=== PATIENT | female | born 1950 | race Caucasian/White ===

== ENCOUNTER 2019-03-30 13:42 | Inpatient (IN) ==
[2019-03-30] MEDS ORDERED: Ipratropium/Albuterol Neb 3 ML IH ONE ×2 (14:04→14:09)
[2019-03-30] MEDS ORDERED: Piperacillin/Tazobactam 4.5 GM in 0.9 % Sodium Chloride Mini Bag 100 ML IVPB ONE (14:21)
[2019-03-30 14:25] LABS: Basophils # 0.1 K/mcL (0.0-0.2); Basophils % 0.7 %; Eosinophils # 2.7 K/mcL (0.0-0.6); Eosinophils % 35.7 %; Hematocrit 37.1 % (35.3-44.9); Hemoglobin 11.6 g/dL (11.5-15.4); Immature Granulocytes % 0.1 % (0-4); Lymphocytes % 12.8 %; Mean Corpuscular HGB Conc 31.3 g/dL (31.6-35.5); Mean Corpuscular Hemoglobin 29.8 pg (28.0-33.3); Mean Corpuscular Volume 95.4 fL (83.0-100.0); Mean Platelet Volume 8.4 fL (9.4-12.4); Monocytes # 0.8 K/mcL (0.0-1.3); Monocytes % 10.8 %; Platelet Count 271 K/mcL (140-400); Red Blood Count 3.89 M/mcL (3.82-4.97); Red Cell Distribution Width 19.8 % (11.5-14.5); Segmented Neutrophils % 39.9 %; White Blood Count 7.5 K/mcL (4.3-11.1)
[2019-03-30 14:32] LABS: INR 1.3; Prothrombin Time 14.8 Seconds (9.4-12.1)
[2019-03-30 14:34] LABS: Activated Partial Thrombo Time 36.8 Seconds (26.0-36.0)
[2019-03-30 14:35] LABS: Anisocytosis 1+ (Not Present); Macrocytosis Present (Not Present); Platelet Estimate Normal (Normal); Reactive Lymphocytes Present (Not Present)
[2019-03-30 14:43] LABS: Alanine Aminotransferase 20 Units/L (7-52); Albumin 3.7 g/dL (3.5-5.7); Albumin/Globulin Ratio 1.1 (1.1-2.2); Alkaline Phosphatase 141 Units/L (34-104); Aspartate Amino Transferase 23 Units/L (13-39); BUN/Creatinine Ratio 16 (6-26); Bilirubin,Total 0.3 mg/dL (0.3-1.0); Blood Urea Nitrogen 11 mg/dL (8-23); Carbon Dioxide 28 mEq/L (23-29); Chloride 102 mEq/L (98-107); Globulin 3.4 g/dL (2.4-3.5); Glucose 96 mg/dL (70-105); Osmolality,Calculated 281 (280-300); Potassium 4.1 mEq/L (3.5-5.1); Sodium 136 mEq/L (136-145); Total Protein 7.1 g/dL (6.4-8.9); Troponin I < 0.03 ng/mL (< 0.04); eGFR For African Americans > 60 (> 60); eGFR For Non-African Americans > 60 (> 60)
[2019-03-30] MEDS ORDERED: MOM Conc 10 ML UD.LIQ PO PRN (17:12)
[2019-03-30] MEDS ORDERED: Acetaminophen 325 MG TABLET PO PRN (17:12)
[2019-03-30] MEDS ORDERED: Ondansetron 4 MG/2 ML VIAL IVP PRN (17:12)
[2019-03-30] MEDS ORDERED: Mag Hydrox/Al Hydrox/Simeth 30 ML UDC PO PRN (17:12)
[2019-03-30] MEDS ORDERED: Ondansetron ODT 4 MG TAB.RAPDIS SL PRN (17:12)
[2019-03-30] MEDS ORDERED: Ibuprofen 400 MG TABLET PO PRN (17:12)
[2019-03-30] MEDS ORDERED: Naloxone 0.4 MG/ML INJ IVP PRN (17:12)
[2019-03-30] MEDS ORDERED: ALPRAZolam 0.5 MG TABLET PO PRN (17:38)
[2019-03-30] MEDS: 0.9 % Sodium Chloride 1,000 ML IVC SCH (18:14)
[2019-03-30] MEDS: MethylPREDNISolone 40 MG/ML VIAL IVP SCH (18:21)
[2019-03-30] MEDS: levoFLOXacin 750 MG/150 ML 750 MG/150 ML BAG IVPB SCH (18:29)
[2019-03-30] MEDS: Ipratropium/Albuterol Neb 3 ML IH SCH ×2 (18:29→21:50)
[2019-03-30] MEDS: Apixaban 5 MG TABLET PO SCH (21:50)
[2019-03-30] MEDS: Budesonide/Formoterol 160/4.5 1 PUFF INH IH SCH (21:51)
[2019-03-31] MEDS ORDERED: Piperacillin/Tazobactam 3.375 GM in 0.9 % Sodium Chloride Mini Bag 100 ML IVPB SCH
[2019-03-31] MEDS: Piperacillin/Tazobactam 3.375 GM in 0.9 % Sodium Chloride Mini Bag 100 ML IVPB SCH ×3 (00:50→17:23)
[2019-03-31] MEDS: Ipratropium/Albuterol Neb 3 ML IH SCH ×4 (00:52→20:44)
[2019-03-31 01:18] LABS: Bilirubin,Urine Negative (Negative); Blood,Urine Negative (Negative); Clarity,Urine Clear (Clear); Color,Urine Yellow (Yellow); Glucose,Urine (UA) Normal (Normal); Ketones,Urine Negative (Negative); Leukocyte Esterase,Urine Trace (Negative); Nitrite,Urine Negative (Negative); PH,Urine 7.5 pH Units (5.0-8.0); Protein,Urine Negative (Neg-Trace); Urobilinogen,Urine Normal (Normal)
[2019-03-31 01:24] LABS: Bacteria,Urine Few per hpf (None-Few); Squamous Epithelial Cell,Urine Few per lpf (None-Few); Transitional Epi Cells,Urine Few per hpf (None-Few)
[2019-03-31] MEDS: MethylPREDNISolone 40 MG/ML VIAL IVP SCH ×2 (05:04→17:27)
[2019-03-31] MEDS: 0.9 % Sodium Chloride 1,000 ML IVC SCH ×2 (05:04→09:11)
[2019-03-31 06:01] LABS: Basophils % 0.2 %; Eosinophils % 0.5 %; Hematocrit 32.8 % (35.3-44.9); Hemoglobin 10.5 g/dL (11.5-15.4); Immature Granulocytes % 0.7 % (0-4); Lymphocytes # 0.6 K/mcL (0.6-4.6); Lymphocytes % 14.5 %; Mean Corpuscular Hemoglobin 30.3 pg (28.0-33.3); Mean Corpuscular Volume 94.8 fL (83.0-100.0); Mean Platelet Volume 8.5 fL (9.4-12.4); Monocytes # 0.3 K/mcL (0.0-1.3); Monocytes % 7.5 %; Neutrophils # 3.4 K/mcL (1.6-8.9); Platelet Count 240 K/mcL (140-400); Red Blood Count 3.46 M/mcL (3.82-4.97); Red Cell Distribution Width 19.4 % (11.5-14.5); Segmented Neutrophils % 76.6 %; White Blood Count 4.4 K/mcL (4.3-11.1)
[2019-03-31] MEDS: Budesonide/Formoterol 160/4.5 1 PUFF INH IH SCH ×2 (07:53→20:41)
[2019-03-31] MEDS: Apixaban 5 MG TABLET PO SCH ×2 (09:09→20:40)
[2019-03-31 10:19] LABS: Alanine Aminotransferase 17 Units/L (7-52); Albumin 3.4 g/dL (3.5-5.7); Albumin/Globulin Ratio 1.1 (1.1-2.2); Alkaline Phosphatase 120 Units/L (34-104); Aspartate Amino Transferase 19 Units/L (13-39); BUN/Creatinine Ratio 18 (6-26); Bilirubin,Total 0.3 mg/dL (0.3-1.0); Blood Urea Nitrogen 15 mg/dL (8-23); Calcium 9.4 mg/dL (8.6-10.3); Carbon Dioxide 24 mEq/L (23-29); Chloride 105 mEq/L (98-107); Glucose 142 mg/dL (70-105); Osmolality,Calculated 281 (280-300); Phosphorous 3.5 mg/dL (2.7-4.5); Potassium 4.3 mEq/L (3.5-5.1); Sodium 134 mEq/L (136-145); Total Protein 6.4 g/dL (6.4-8.9); eGFR For African Americans > 60 (> 60); eGFR For Non-African Americans > 60 (> 60)
[2019-03-31] MEDS: levoFLOXacin 750 MG/150 ML 750 MG/150 ML BAG IVPB SCH (13:39)
[2019-04-01] MEDS: Piperacillin/Tazobactam 3.375 GM in 0.9 % Sodium Chloride Mini Bag 100 ML IVPB SCH ×3 (00:01→16:41)
[2019-04-01] MEDS: 0.9 % Sodium Chloride 1,000 ML IVC SCH ×3 (00:15→16:41)
[2019-04-01] MEDS: Ipratropium/Albuterol Neb 3 ML IH SCH ×4 (04:54→21:41)
[2019-04-01] MEDS: MethylPREDNISolone 40 MG/ML VIAL IVP SCH ×2 (04:54→17:38)
[2019-04-01] MEDS: Apixaban 5 MG TABLET PO SCH ×2 (08:38→20:52)
[2019-04-01] MEDS: levoFLOXacin 750 MG/150 ML 750 MG/150 ML BAG IVPB SCH (09:47)
[2019-04-01] MEDS: Budesonide/Formoterol 160/4.5 1 PUFF INH IH SCH ×2 (10:05→20:52)
[2019-04-02] MEDS: Piperacillin/Tazobactam 3.375 GM in 0.9 % Sodium Chloride Mini Bag 100 ML IVPB SCH ×3 (00:12→17:07)
[2019-04-02] MEDS: 0.9 % Sodium Chloride 1,000 ML IVC SCH ×3 (02:55→12:06)
[2019-04-02] MEDS: MethylPREDNISolone 40 MG/ML VIAL IVP SCH ×2 (05:16→17:06)
[2019-04-02] MEDS: Ipratropium/Albuterol Neb 3 ML IH SCH ×3 (05:18→15:06)
[2019-04-02 05:56] LABS: Hematocrit 32.2 % (35.3-44.9); Hemoglobin 10.3 g/dL (11.5-15.4); Immature Granulocytes % 0.7 % (0-4); Lymphocytes % 11.7 %; Mean Corpuscular Hemoglobin 30.6 pg (28.0-33.3); Mean Corpuscular Volume 95.5 fL (83.0-100.0); Mean Platelet Volume 8.6 fL (9.4-12.4); Monocytes # 0.8 K/mcL (0.0-1.3); Monocytes % 9.7 %; Neutrophils # 6.3 K/mcL (1.6-8.9); Platelet Count 237 K/mcL (140-400); Red Blood Count 3.37 M/mcL (3.82-4.97); Red Cell Distribution Width 19.9 % (11.5-14.5); Segmented Neutrophils % 77.9 %; White Blood Count 8.1 K/mcL (4.3-11.1)
[2019-04-02 06:12] LABS: BUN/Creatinine Ratio 19 (6-26); Blood Urea Nitrogen 14 mg/dL (8-23); Calcium 9.3 mg/dL (8.6-10.3); Carbon Dioxide 23 mEq/L (23-29); Chloride 108 mEq/L (98-107); Glucose 113 mg/dL (70-105); Osmolality,Calculated 285 (280-300); Potassium 3.6 mEq/L (3.5-5.1); Sodium 137 mEq/L (136-145); eGFR For African Americans > 60 (> 60); eGFR For Non-African Americans > 60 (> 60)
[2019-04-02] MEDS: Apixaban 5 MG TABLET PO SCH (07:51)
[2019-04-02] MEDS: levoFLOXacin 750 MG/150 ML 750 MG/150 ML BAG IVPB SCH (07:52)
[2019-04-02] MEDS: Budesonide/Formoterol 160/4.5 1 PUFF INH IH SCH (08:12)
[2019-04-02 16:44] VITALS: BP 152/99
[2019-04-02] MEDS ORDERED: levoFLOXacin 750 MG TABLET PO SCH (17:00)
== END 2019-04-02 18:06 | disposition home or self-care (01) | DRG 194 ==
LOC: INPGRE 13:42 → EMEROOGRE 13:42 → INPGRE 16:06
PROVIDERS: ADMIT Family Medicine; ATTEND Family Medicine

== ENCOUNTER 2019-06-05 18:17 | Inpatient (IN) ==
[2019-06-05] MEDS ORDERED: Ipratropium/Albuterol Neb 3 ML ONE ×2 (18:37→21:36)
[2019-06-05] MEDS ORDERED: methylPREDNISolone 125 MG/2 ML VIAL IVP ONE (18:38)
[2019-06-05] MEDS ORDERED: Ipratropium/Albuterol Neb 3 ML IH ONE (18:38)
[2019-06-05 19:05] LABS: ABG Base Excess 2 mEq/L (-2 to 3); ABG HCO3 26 mEq/L (21-27); ABG Oxygen Saturation 95 % (95-98); ABG PCO2 40 mmHg (35-45); ABG PH 7.42 pH Units (7.32-7.45); ABG PO2 76 mmHg (85-104); ABG TCO2 27 mEq/L (20-26)
[2019-06-05 19:22] LABS: Basophils % 0.5 %; Eosinophils # 2.3 K/mcL (0.0-0.6); Eosinophils % 26.4 %; Hematocrit 41.3 % (35.3-44.9); Hemoglobin 13.3 g/dL (11.5-15.4); Immature Granulocytes % 0.5 % (0-4); Lymphocytes # 1.3 K/mcL (0.6-4.6); Lymphocytes % 15.5 %; Mean Corpuscular HGB Conc 32.2 g/dL (31.6-35.5); Mean Corpuscular Hemoglobin 29.8 pg (28.0-33.3); Mean Corpuscular Volume 92.6 fL (83.0-100.0); Mean Platelet Volume 8.4 fL (9.4-12.4); Monocytes # 0.9 K/mcL (0.0-1.3); Monocytes % 10.3 %; Neutrophils # 4.1 K/mcL (1.6-8.9); Platelet Count 254 K/mcL (140-400); Red Blood Count 4.46 M/mcL (3.82-4.97); Red Cell Distribution Width 15.7 % (11.5-14.5); Segmented Neutrophils % 46.8 %; White Blood Count 8.7 K/mcL (4.3-11.1)
[2019-06-05 19:26] LABS: INR 1.1; Prothrombin Time 12.5 Seconds (9.4-12.1)
[2019-06-05 19:34] LABS: Alanine Aminotransferase 22 Units/L (7-52); Albumin 3.8 g/dL (3.5-5.7); Albumin/Globulin Ratio 1.3 (1.1-2.2); Alkaline Phosphatase 90 Units/L (34-104); Aspartate Amino Transferase 19 Units/L (13-39); BUN/Creatinine Ratio 16 (6-26); Bilirubin,Total 0.4 mg/dL (0.3-1.0); Blood Urea Nitrogen 12 mg/dL (8-23); Calcium 9.8 mg/dL (8.6-10.3); Carbon Dioxide 29 mEq/L (23-29); Chloride 103 mEq/L (98-107); Globulin 2.9 g/dL (2.4-3.5); Glucose 90 mg/dL (70-105); Osmolality,Calculated 287 (280-300); Potassium 3.9 mEq/L (3.5-5.1); Sodium 139 mEq/L (136-145); Total Protein 6.7 g/dL (6.4-8.9); eGFR For African Americans > 60 (> 60); eGFR For Non-African Americans > 60 (> 60)
[2019-06-05 19:37] LABS: Troponin I < 0.03 ng/mL (< 0.04)
[2019-06-05] MEDS ORDERED: levoFLOXacin 750 MG/150 ML 750 MG/150 ML BAG IVPB ONE (20:12)
[2019-06-05] MEDS ORDERED: Furosemide 40 MG/4 ML VIAL IVP ONE (20:12)
[2019-06-05] MEDS ORDERED: Naloxone 0.4 MG/ML INJ IVP PRN (21:36)
[2019-06-05] MEDS ORDERED: ALPRAZolam 0.5 MG TABLET PO PRN (21:36)
[2019-06-05] MEDS ORDERED: Ondansetron ODT 4 MG TAB.RAPDIS SL PRN (21:36)
[2019-06-05] MEDS: Budesonide/Formoterol 160/4.5 1 PUFF INH IH SCH (22:21)
[2019-06-05] MEDS: Apixaban 5 MG TABLET PO SCH (22:35)
[2019-06-05] MEDS: Cyanocobalamin (B-12) 1,000 MCG TABLET PO SCH (22:35)
[2019-06-05] MEDS: Cholecalciferol (D-3) 1,000 UNIT (25MCG) TABLET PO SCH (22:36)
[2019-06-05] MEDS: 0.9 % Sodium Chloride 1,000 ML IVC SCH (22:37)
[2019-06-06] MEDS: Cyanocobalamin (B-12) 1,000 MCG TABLET PO SCH ×2 (09:19→20:18)
[2019-06-06] MEDS: Apixaban 5 MG TABLET PO SCH ×2 (09:19→20:18)
[2019-06-06] MEDS: Lactobacillus 1 EACH CAP.SPRINK PO SCH (09:19)
[2019-06-06] MEDS: Cholecalciferol (D-3) 1,000 UNIT (25MCG) TABLET PO SCH ×2 (09:19→20:19)
[2019-06-06] MEDS: MethylPREDNISolone 40 MG/ML VIAL IVP SCH ×2 (09:29→17:15)
[2019-06-06] MEDS: levoFLOXacin 750 MG/150 ML 750 MG/150 ML BAG IVPB SCH (09:30)
[2019-06-06] MEDS: Budesonide/Formoterol 160/4.5 1 PUFF INH IH SCH ×2 (10:19→21:44)
[2019-06-06] MEDS: Ipratropium/Albuterol Neb 3 ML IH PRN ×3 (10:23→21:43)
[2019-06-06] MEDS: 0.9 % Sodium Chloride 1,000 ML IVC SCH (20:19)
[2019-06-07] MEDS: MethylPREDNISolone 40 MG/ML VIAL IVP SCH ×2 (00:11→09:12)
[2019-06-07] MEDS ORDERED: levoFLOXacin 750 MG/150 ML 750 MG/150 ML BAG IVPB SCH (09:00)
[2019-06-07] MEDS: levoFLOXacin 750 MG/150 ML 750 MG/150 ML BAG IVPB SCH (09:11)
[2019-06-07] MEDS: Lactobacillus 1 EACH CAP.SPRINK PO SCH (09:12)
[2019-06-07] MEDS: Apixaban 5 MG TABLET PO SCH (09:12)
[2019-06-07] MEDS: Cyanocobalamin (B-12) 1,000 MCG TABLET PO SCH (09:12)
[2019-06-07] MEDS: Cholecalciferol (D-3) 1,000 UNIT (25MCG) TABLET PO SCH (09:12)
[2019-06-07] MEDS: Budesonide/Formoterol 160/4.5 1 PUFF INH IH SCH (09:46)
[2019-06-07 11:35] VITALS: BP 108/71
== END 2019-06-07 11:45 | disposition home or self-care (01) | DRG 190 ==
LOC: EMEROOGRE 18:17 → INPGRE 21:08
PROVIDERS: ADMIT Student in an Organized Health Care Education/Training Program; ATTEND Student in an Organized Health Care Education/Training Program